=== PATIENT | female | born 1945 | race Caucasian/White ===

== ENCOUNTER 2020-07-11 14:06 | Emergency (ER) | payer MEDICARE, OTHER, SELFPAY ==
[2020-07-11 15:13] VITALS: BP 135/49; PULSE 85; RESP 18; TEMP 37.6; O2SAT 99; BMI 43.5
--- NOTE | 2020-07-11 16:15 | ECG_ITS ---
Test Reason : WEAKNESS Blood Pressure : / mmHG Vent. Rate : 085 BPM Atrial Rate : 085 BPM P-R Int : 190 ms QRS Dur : 082 ms QT Int : 364 ms P-R-T Axes : 049 033 051 degrees QTc Int : 433 ms Normal sinus rhythm RSR' or QR pattern in V1 suggests right ventricular conduction delay Nonspecific ST abnormality Lateral leads Abnormal ECG When compared with ECG of 18-OCT-2006 17:04, Nonspecific ST abnormality is new Heart rate has increased Referred By: Filippo Lozano Electronically Signed By:EMILY AVELAR MD
--- NOTE | 2020-07-11 16:15 | XR_ITS ---
EXAMINATION: XR CHEST CLINICAL INFORMATION: Shortness of breath COMPARISON: None TECHNIQUE: Portable upright AP view of the chest was obtained. FINDINGS: There is subtle patchy opacity left retrocardiac region suspicious for airspace opacities. There are no air bronchograms. No effusion. The right lung is clear. Heart is upper limits of normal size. The hilar and mediastinal contours are normal. No visible acute bony abnormality. XR/XR chest 1V IMPRESSION: Suspect patchy airspace opacity left posterior base. No effusion.
--- NOTE | 2020-07-11 16:17 | ED.GENADULT ---
HPI - General Adult General Chief complaint: General Medical Stated complaint: fever,chills,sob Time Seen by Provider: 07/11/20 16:09 Source: patient Mode of arrival: ambulatory Limitations: no limitations History of Present Illness HPI narrative: 74-year-old female presented with fever, chills, nonproductive cough for the past 2 days, patient declined any recent travel or exposure to a sick contact. Onset (ago): day(s) (2) Severity: moderate Relieving factors: none Exacerbating factors: none Associated symptoms: cough Treatments prior to arrival: none Related Data Home Medications Medication Instructions Recorded Confirmed furosemide 1 tab PO DAILY 07/11/20 07/11/20 Previous Rx's Medication Instructions Recorded azithromycin [Zithromax Z-Ang] 250 mg PO DAILY 5 Days #5 tab 07/11/20 Allergies Allergy/AdvReac Type Severity Reaction Status Date / Time mold Allergy Cough Verified 07/11/20 14:13 Review of Systems Review of Systems: All other systems are reviewed and are negative Constitutional: Reports as per HPI and Reports no additional constitutional complaints Eyes: Reports as per HPI and Reports no additional eye complaints Reports system reviewed and no additional complaints, except as documented Cardiovascular: Reports as per HPI and Reports no additional cardiovascular complaints Respiratory: Reports as per HPI and Reports no additional respiratory complaints Gastrointestinal: Reports as per HPI and Reports no additional gastrointestinal complaints Genitourinary: Reports no additional female genitourinary complaints Musculoskeletal: Reports no additional musculoskeletal complaints Skin/Breast: Reports system reviewed and no additional complaints, except as docu Psychiatric: Reports no additional psychiatric complaints Endocrine: Reports no additional endocrine complaints Hematologic/Lymphatic: Reports no additional hematologic/lymphatic complaints Allergic/Immunologic: Reports no additional allergic/immunologic complaints Reports system reviewed and no additional complaints, except as documented and Reports Abnormal speech present [facility] Past Medical History Medical History No known health problems Surgical History History of hysterectomy Social History Social History Alcohol intake: never Smoking Status: Former smoker Use of substances other than those prescribed or required for medical reasons: No Advance Directives: No Advance Directives Information Provided: No Physical Exam Vital Signs: Vital Signs: Vital Signs Temp Pulse Resp BP Pulse Ox 07/11/20 18:14 100.0 F 84 18 141/56 H 97 07/11/20 16:43 99.6 F 85 20 110/62 94 07/11/20 15:13 99.6 F 85 18 135/49 L 99 Body Mass Index 43.5 vital signs have been reviewed as normal and appeared to be correct. Blood pressure normal. Heart rate normal. Respiration rate normal. Temperature normal. Oxygen saturation normal. Appearance: Alert. Oriented X3. No acute distress. Head: Normal external exam. Normocephalic. Atraumatic. No Torres signs noted. No raccoon eyes noted Eyes: PERRLA. EOMI. Conjunctiva and sclera normal. Eyelids normal. ENT: EAC normal. TM's Normal. Pharynx normal. Uvula midline. Moist mucous membranes. No trismus noted. No drooling noted. No muffled voice noted. Neck: Normal inspection. Neck supple. FROM. No adenopathy. Thyroid Normal. No meningeal signs. No neck mass noted. CVS: Normal heart rate and rhythm. Heart sound normal. No murmurs noted. Pulses normal throughout. Respiratory: No respiratory distress. Painless inspiration. Breath sounds normal. No wheezes/rales/rhonchi noted. Chest nontender. No accessory muscle usage noted or decreased air movement noted. Abdomen: Soft and nontender. Bowel sounds normal in all 4 quadrants. No distention noted. No organomegaly noted. No visible injury noted. Back: No CVA tenderness. Full range of motion noted. Skin: Skin warm and dry. Normal skin color. Normal skin turgor. No rashes/lesions/lacerations noted. Extremities: No lower extremity edema. Extremities exhibit normal range of motion. Extremities nontender. Neuro: Oriented X 3. No motor deficit. No sensory deficit. Reflexes normal. Course Course Course Narrative: this is a 74-year-old female presented with 2 days of on and off fever, chills, dry cough. Patient appears stable Will check chest x-ray, rule out sepsis, COVID testing, reassess. Medical Decision Making MDM Narrative Medical decision making narrative: Assessment and plan. 74-year-old female came in with fever, chills, difficulty breathing and coughing. Labs and chest x-ray with physical exam are consistent with simple noncomplicated pneumonia with out sepsis. Will discharge the patient with Z-Ang for 5 days. Lab Data Result diagrams: 07/11/20 16:38 07/11/20 16:38 Labs: Lab Results 07/11/20 07/11/20 07/11/20 Range/Units 16:38 16:38 16:38 WBC 9.6 (4.8-10.8) X10*3/uL RBC 3.91 L (4.20-5.50) X10*6/uL Hgb 12.4 (12.0-16.0) g/dl Hct 37.3 (37-47) % MCV 95.4 (80-98) fL MCH 31.7 (27.0-33.0) pg MCHC 33.2 (31.0-35.0) g/dl RDW 12.6 (11.0-16.0) % Plt Count 176 (160-400) X10*3/uL MPV 11.4 (9.4-12.3) fL Absolute Nucleated RBC 0.000 (0.0-0.012) X10*3/uL Nucleated RBC % (auto) 0.0 (0.0-0.2) /100WBC Sodium 137 (135-145) mmol/L Potassium 4.3 (3.3-5.1) mmol/l Chloride 99 (96-108) mmol/L Carbon Dioxide 28 (22-29) mmol/L Anion Gap 14 (12-20) BUN 12 (9-16) mg/dL Creatinine 0.77 (0.5-1.4) mg/dL Estim Creat Clear Calc 66.5 Estimated GFR > 60 Random Glucose 151 H (60-115) mg/dL Lactic Acid 1.1 (0.5-2.0) mmol/L Calcium 8.6 (8.4-10.2) mg/dL Magnesium 2.2 (1.6-2.6) mg/dL Total Bilirubin 0.4 (0.0-1.0) mg/dL Direct Bilirubin 0.2 (0.0-0.5) mg/dL AST 41 H (5-31) U/L ALT 47 H (0-31) U/L Alkaline Phosphatase 88 (39-117) U/L B-Natriuretic Peptide (<100) pg/mL Total Protein 6.4 L (6.5-8.0) g/dL Albumin 3.8 (3.5-5.0) g/dL Lipase 41 (8-78) U/L Coronavirus (PCR) (Negative) 07/11/20 07/11/20 07/11/20 Range/Units 16:38 16:38 16:38 WBC (4.8-10.8) X10*3/uL RBC (4.20-5.50) X10*6/uL Hgb (12.0-16.0) g/dl Hct (37-47) % MCV (80-98) fL MCH (27.0-33.0) pg MCHC (31.0-35.0) g/dl RDW (11.0-16.0) % Plt Count (160-400) X10*3/uL MPV (9.4-12.3) fL Absolute Nucleated RBC (0.0-0.012) X10*3/uL Nucleated RBC % (auto) (0.0-0.2) /100WBC Sodium (135-145) mmol/L Potassium (3.3-5.1) mmol/l Chloride (96-108) mmol/L Carbon Dioxide (22-29) mmol/L Anion Gap (12-20) BUN (9-16) mg/dL Creatinine (0.5-1.4) mg/dL Estim Creat Clear Calc Estimated GFR Random Glucose (60-115) mg/dL Lactic Acid (0.5-2.0) mmol/L Calcium (8.4-10.2) mg/dL Magnesium Cancelled (1.6-2.6) mg/dL Total Bilirubin Cancelled (0.0-1.0) mg/dL Direct Bilirubin Cancelled (0.0-0.5) mg/dL AST Cancelled (5-31) U/L ALT Cancelled (0-31) U/L Alkaline Phosphatase Cancelled (39-117) U/L B-Natriuretic Peptide 18 (<100) pg/mL Total Protein Cancelled (6.5-8.0) g/dL Albumin Cancelled (3.5-5.0) g/dL Lipase Cancelled (8-78) U/L Coronavirus (PCR) (Negative) 07/11/20 Range/Units 16:38 WBC (4.8-10.8) X10*3/uL RBC (4.20-5.50) X10*6/uL Hgb (12.0-16.0) g/dl Hct (37-47) % MCV (80-98) fL MCH (27.0-33.0) pg MCHC (31.0-35.0) g/dl RDW (11.0-16.0) % Plt Count (160-400) X10*3/uL MPV (9.4-12.3) fL Absolute Nucleated RBC (0.0-0.012) X10*3/uL Nucleated RBC % (auto) (0.0-0.2) /100WBC Sodium (135-145) mmol/L Potassium (3.3-5.1) mmol/l Chloride (96-108) mmol/L Carbon Dioxide (22-29) mmol/L Anion Gap (12-20) BUN (9-16) mg/dL Creatinine (0.5-1.4) mg/dL Estim Creat Clear Calc Estimated GFR Random Glucose (60-115) mg/dL Lactic Acid (0.5-2.0) mmol/L Calcium (8.4-10.2) mg/dL Magnesium (1.6-2.6) mg/dL Total Bilirubin (0.0-1.0) mg/dL Direct Bilirubin (0.0-0.5) mg/dL AST (5-31) U/L ALT (0-31) U/L Alkaline Phosphatase (39-117) U/L B-Natriuretic Peptide (<100) pg/mL Total Protein (6.5-8.0) g/dL Albumin (3.5-5.0) g/dL Lipase (8-78) U/L Coronavirus (PCR) NEGATIVE (Negative) Imaging Data Chest x-ray: Radiologist's impression: Suspect patchy airspace opacity left posterior base. No effusion. ECG Data Interpretation: Normal sinus rhythm at 85 beats per minute normal intervals, no ST- T changes. Discharge Plan Discharge Clinical Impression: Community acquired pneumonia Qualifiers: Laterality: left Lung location: lower lobe of lung Qualified Code(s): J18.9 - Pneumonia, unspecified organism Patient Disposition: Home, Self-Care Instructions: Community Acquired Pneumonia (ED) Prescriptions: New azithromycin [Zithromax Z-Ang] 250 mg tablet 250 mg PO DAILY 5 Days Qty: 5 RF: 0 No Action furosemide 20 mg tablet 1 tab PO DAILY RF: 0
[2020-07-11 16:43] VITALS: BP 110/62; PULSE 85; RESP 20; TEMP 37.6; O2SAT 94
[2020-07-11] MEDS: 0.9 % Sodium Chloride 1,000 ML 999 ML IVCONT (16:49)
[2020-07-11 16:51] LABS: Hematocrit 37.3 % (37-47); Hemoglobin 12.4 g/dl (12.0-16.0); Mean Corpuscular HGB Conc 33.2 g/dl (31.0-35.0); Mean Corpuscular Hemoglobin 31.7 pg (27.0-33.0); Mean Corpuscular Volume 95.4 fL (80-98); Mean Platelet Volume 11.4 fL (9.4-12.3); Platelet Count 176 X10*3/uL (160-400); Red Blood Count 3.91 X10*6/uL (4.20-5.50); Red Cell Distribution Width 12.6 % (11.0-16.0); White Blood Count 9.6 X10*3/uL (4.8-10.8)
[2020-07-11 17:15] LABS: Lactic Acid 1.1 mmol/L (0.5-2.0)
[2020-07-11 17:22] LABS: Alanine Aminotransferase 47 U/L (0-31); Albumin Level 3.8 g/dL (3.5-5.0); Alkaline Phosphatase 88 U/L (39-117); Anion Gap 14 (12-20); Aspartate Amino Transferase 41 U/L (5-31); Bilirubin Direct 0.2 mg/dL (0.0-0.5); Bilirubin Total 0.4 mg/dL (0.0-1.0); Blood Urea Nitrogen 12 mg/dL (9-16); Calcium 8.6 mg/dL (8.4-10.2); Carbon Dioxide 28 mmol/L (22-29); Chloride 99 mmol/L (96-108); Creatinine Clr Calc Pharmacy 66.5; Estimated Glomerular Filt Rate > 60; Glucose Random 151 mg/dL (60-115); Lipase 41 U/L (8-78); Magnesium 2.2 mg/dL (1.6-2.6); Potassium 4.3 mmol/l (3.3-5.1); Sodium 137 mmol/L (135-145); Total Protein 6.4 g/dL (6.5-8.0)
[2020-07-11 17:26] LABS: B Type Natriuretic Peptide 18 pg/mL (<100)
[2020-07-11] MEDS: cefTRIAXone sodium 1 GM in 0.9 % Sodium Chloride 50 ML IV (17:48)
[2020-07-11] MEDS: Azithromycin 500 MG TABLET PO (17:48)
[2020-07-11 18:07] LABS: SARS COV2 PCR INHOUSE NEGATIVE (Negative)
[2020-07-11 18:14] VITALS: BP 141/56; PULSE 84; RESP 18; TEMP 37.8; O2SAT 97
[2020-07-11] MEDS: Acetaminophen 325 MG TABLET 650 MG PO (19:03)
== END 2020-07-11 19:46 | disposition home or self-care (01) ==
PROVIDERS: Emergency Provider Emergency Medicine
DX: J18.9 Pneumonia, unspecified organism (principal); R50.9 Fever, unspecified; R05 Cough; Z79.899 Other long term (current) drug therapy; Z87.891 Personal history of nicotine dependence; Z20.828 Contact with and (suspected) exposure to other viral communicable diseases
CPT/HCPCS: 36415; 71045; 80048; 80076; 83605; 83690; 83735; 83880; 85027; 87040; 87635; 93005; 99284

== ENCOUNTER 2020-09-03 09:57 | Outpatient (REF) | payer MEDICARE, MEDICAID, SELFPAY ==
[2020-09-03 10:31] LABS: MANUAL DIFF FLAG NO
[2020-09-03 10:38] LABS: Basophils Percent Auto 0.5 % (0-2); Eosinophils Absolute Auto 0.2 X10*3/uL (0.0-0.4); Eosinophils Percent Auto 2.7 % (0-4); Hematocrit 43.6 % (37-47); Hemoglobin 14.4 g/dl (12.0-16.0); Imm Gran Abs Auto 0.03 X10*3/uL (0.00-0.03); Imm Gran Pct Auto 0.5 % (0.0-0.4); Lymphocytes Absolute Auto 1.7 X10*3/uL (1.2-4.9); Lymphocytes Percent Auto 26.4 % (20-40); Mean Corpuscular Hemoglobin 31.2 pg (27.0-33.0); Mean Corpuscular Volume 94.6 fL (80-98); Mean Platelet Volume 11.2 fL (9.4-12.3); Monocytes Absolute Auto 0.5 X10*3/uL (0.1-1.2); Monocytes Percent Auto 7.8 % (2-11); Neutrophils Percent Auto 62.1 % (45-73); Platelet Count 190 X10*3/uL (160-400); Red Blood Count 4.61 X10*6/uL (4.20-5.50); Red Cell Distribution Width 12.9 % (11.0-16.0); White Blood Count 6.4 X10*3/uL (4.8-10.8)
[2020-09-03 11:21] LABS: Alanine Aminotransferase 11 U/L (0-31); Albumin Level 4.2 g/dL (3.5-5.0); Alkaline Phosphatase 80 U/L (39-117); Anion Gap 12 (12-20); Aspartate Amino Transferase 13 U/L (5-31); Bilirubin Direct 0.2 mg/dL (0.0-0.5); Bilirubin Total 0.4 mg/dL (0.0-1.0); Blood Urea Nitrogen 15 mg/dL (9-16); Carbon Dioxide 31 mmol/L (22-29); Chloride 102 mmol/L (96-108); Cholesterol 231 mg/dL; Estimated Glomerular Filt Rate > 60; Glucose Fasting 99 mg/dL (60-99); HDL Cholesterol 56 mg/dL; LDL Cholesterol Calculated 154 mg/dl; Potassium 4.3 mmol/l (3.3-5.1); Sodium 141 mmol/L (135-145); Total Protein 6.7 g/dL (6.5-8.0); Triglycerides 105 mg/dL
[2020-09-03 11:42] LABS: Vitamin D 25-OH Total 32.7 ng/mL (>30)
== END 2020-09-03 09:58 | disposition home or self-care (01) ==
LOC: HO.LAB 09:57
DX: Z00.00 Encounter for general adult medical examination without abnormal findings (principal); R51.9 Headache, unspecified; R42 Dizziness and giddiness
CPT/HCPCS: 36415; 80053; 80061; 80076; 82248; 82306; 85025

== ENCOUNTER 2021-05-29 13:44 | Outpatient (REF) | payer MEDICARE, MEDICAID, SELFPAY ==
--- NOTE | ~2021-05-29 | MM_ITS ---
EXAMINATION: MM SCREENING DIGITAL BREAST TOMOSYNTHESIS, BILATERAL CLINICAL INFORMATION: Screening. Asymptomatic. The lifetime risk of breast cancer based on the Tyrer-Cuzick Model is under 2%. COMPARISON: Mammography: 05/23/2020, 05/18/2019, 05/02/2018, 03/19/2017, 08/18/2011 TECHNIQUE: Digital breast tomosynthesis is performed in both the craniocaudal and mediolateral oblique views along with computer-aided detection (CAD). Synthesized 2D images are generated from the tomosynthesis. Additional right MLO view is provided. FINDINGS: There are scattered areas of fibroglandular density (ACR BI-RADS breast composition Category b). Parenchymal pattern is similar to prior studies. Chronic fine fibronodular densities are present. There is decreased cystic changes central outer left breast and decreased fine nodularity central right breast since 2010. There is no interval significant mass or architectural abnormality. No abnormal calcifications. The axilla and skin contours are unremarkable. MM/MM tomosynthesis screening BI IMPRESSION: No significant changes from prior studies. ASSESSMENT: BI-RADS 2: Benign RECOMMENDATION: Routine annual mammography screening. This patient's information was entered into a reminder system with a target due date for their next mammogram.
== END 2021-05-29 13:45 | disposition home or self-care (01) ==
LOC: HO.MAMMO 13:44
PROVIDERS: PCP Internal Medicine; Visit Provider Internal Medicine
DX: Z12.31 Encounter for screening mammogram for malignant neoplasm of breast (principal)
CPT/HCPCS: 77063; 77067

== ENCOUNTER 2022-06-04 14:14 | Outpatient (REF) | payer MEDICARE, MEDICAID, SELFPAY ==
--- NOTE | ~2022-06-04 | MM_ITS ---
EXAMINATION: MM SCREENING DIGITAL BREAST TOMOSYNTHESIS, BILATERAL CLINICAL INFORMATION: Screening. Asymptomatic. The lifetime risk of breast cancer based on the Tyrer-Cuzick Model is under 2%. COMPARISON: Mammography: 05/29/2021, 05/23/2020, 05/18/2019, 05/02/2018; left breast ultrasound 11/23/2019, 05/24/2019. TECHNIQUE: Digital breast tomosynthesis is performed in both the craniocaudal and mediolateral oblique views along with computer-aided detection (CAD). Synthesized 2D images are generated from the tomosynthesis. Additional bilateral MLO views are provided. FINDINGS: There are scattered areas of fibroglandular density (ACR BI-RADS breast composition Category b). Parenchymal pattern is similar to prior studies. There is scattered minor nodularity and known cysts anterior outer left breast. No architectural abnormality or significant mass or developing density. No abnormal calcifications. The axilla and skin contours are unremarkable. MM/MM tomosynthesis screening BI IMPRESSION: No significant changes from prior exams. ASSESSMENT: BI-RADS 2: Benign RECOMMENDATION: Routine annual mammography screening. This patient's information was entered into a reminder system with a target due date for their next mammogram.
== END 2022-06-04 14:15 | disposition home or self-care (01) ==
LOC: HO.MAMMO 14:14
PROVIDERS: PCP Internal Medicine; Visit Provider Internal Medicine
DX: Z12.31 Encounter for screening mammogram for malignant neoplasm of breast (principal)
CPT/HCPCS: 77063; 77067

== ENCOUNTER 2023-06-10 14:28 | Outpatient (REF) | payer MEDICARE, SELFPAY | END 2023-06-10 14:29 | disposition home or self-care (01) | LOC: HO.MAMMO 14:28 | PROVIDERS: PCP Internal Medicine; Visit Provider Internal Medicine | DX: Z12.31 Encounter for screening mammogram for malignant neoplasm of breast (principal) | CPT/HCPCS: 77063; 77067 ==

== ENCOUNTER → 2023-06-10 14:30 | Outpatient (BNV) | payer MEDICARE, SELFPAY | PROVIDERS: PCP Internal Medicine; Visit Provider Radiology Diagnostic Radiology | DX: Z12.31 Encounter for screening mammogram for malignant neoplasm of breast (principal) | CPT/HCPCS: 77063; 77067 ==

== ENCOUNTER 2024-06-12 14:31 | Outpatient (REF) | payer MEDICARE, SELFPAY ==
--- NOTE | ~2024-06-12 | MM_ITS ---
EXAMINATION: MM SCREENING DIGITAL BREAST TOMOSYNTHESIS, BILATERAL CLINICAL INFORMATION: Screening. Asymptomatic. COMPARISON: Mammography: Comparison is made with available priors TECHNIQUE: Digital breast mammography with tomosynthesis is performed in both the craniocaudal and mediolateral oblique views along with computer-aided detection (CAD). FINDINGS: There are scattered areas of fibroglandular density (ACR BI-RADS breast composition Category b). Left: Focal asymmetry upper outer breast middle depth. No suspicious calcifications or other abnormal findings. Right: Asymmetry medial breast middle depth on CC view. There are no significant abnormal calcifications, or other abnormalities. MM/MM tomosynthesis screening BI IMPRESSION: Additional imaging is recommended ASSESSMENT: BI-RADS BI-RADS 0 - Incomplete: Needs additional Imaging. RECOMMENDATION: 1. Additional views of the bilateral breasts 2. Targeted ultrasound if warranted after review of the additional views. 3. Radiology department staff will contact the patient for additional imaging. Additional Imaging required This examination should not preclude the clinical evaluation of a suspicious palpable abnormality. This patient's information was entered into a reminder system with a target due date for their next mammogram. Electronically signed by: Symone Cain DO 06/23/2024 09:21 AM EDT
== END 2024-06-12 14:32 | disposition home or self-care (01) ==
LOC: HO.MAMMO 14:31
PROVIDERS: PCP Internal Medicine; Visit Provider Internal Medicine
DX: Z12.31 Encounter for screening mammogram for malignant neoplasm of breast (principal)
CPT/HCPCS: 77063; 77067

== ENCOUNTER → 2024-06-12 14:45 | Outpatient (BNV) | payer MEDICARE, SELFPAY | PROVIDERS: PCP Internal Medicine; Visit Provider Internal Medicine | DX: Z12.31 Encounter for screening mammogram for malignant neoplasm of breast (principal) | CPT/HCPCS: 77063; 77067 ==

== ENCOUNTER 2024-08-15 14:24 | Outpatient (REF) | payer MEDICARE, SELFPAY ==
--- NOTE | ~2024-08-15 | US_ITS ---
EXAMINATION: MM DIAGNOSTIC DIGITAL BREAST TOMOSYNTHESIS, BILATERAL US BREAST LIMITED, BILATERAL MAMMOGRAPHY: CLINICAL INFORMATION: Diagnostic exam; evaluate focal asymmetry left breast upper outer quadrant. Evaluate one view asymmetry slightly medial right breast CC view only, middle depth. COMPARISON: Mammography: 06/12/2024, and older exams dating back to 2017. TECHNIQUE: Digital breast tomosynthesis is performed in the following views: Full field 3-D right ML view, as well as a spot compression 3-D right CC view. In addition, 3-D spot compression left CC x2 and left ML x1 also obtained. Computer-aided diagnosis was used for this study. This was followed by targeted bilateral breast ultrasound. FINDINGS: There are scattered areas of fibroglandular density (ACR BI-RADS breast composition Category b). Focal asymmetry in the upper outer left breast was worked up previously 05/18/2019, and was found to represent several simple and minimally complicated cysts (fibrocystic changes). On today's examination this area appears similar mammographically. There are several oval circumscribed subcentimeter masses suggestive of known cysts. We will evaluate this area with ultrasound. Within the left breast, seen medially, a 1 view asymmetry is present, and persistent, however stable from exams dating back to 2017, consistent with a benign entity. This will be evaluated with ultrasound as well. ULTRASOUND: CLINICAL INFORMATION: As above. COMPARISON: Left breast targeted ultrasound 11/23/2019, 05/24/2019. TECHNIQUE: Targeted sonographic evaluation bilateral breasts was performed using a high frequency linear transducer. Left breast was scanned in the upper outer quadrant to evaluate the mammographic focus of concern. Right breast was evaluated from the 2:00 to 5:00 axis to include the area of mammographic concern. Selected archived documentation. FINDINGS: RIGHT BREAST: There is a mixture of fatty and fibroglandular tissue. No suspicious mass is seen. There is no pathologic acoustic shadowing. There is no cystic abnormality. There are 2 small subcentimeter lipomatous nodules, likely correlating with the medial asymmetry on the CC view, benign. LEFT BREAST: There is a mixture of fatty and fibroglandular tissue. No suspicious mass is seen. There is no pathologic acoustic shadowing. There are several grouped simple and minimally complicated cysts. None have suspicious features, and the largest measures approximately 5 mm in diameter, unchanged from 2019. Findings are consistent with benign fibrocystic changes. US/US breast BI limited mamm only IMPRESSION: 1. There are no findings suspicious for malignancy in either breast. 2. Benign fibrocystic changes in the upper outer left breast, stable from 2019 exams. 3. Benign right breast medial asymmetry, unchanged from 2017, likely correlating with a 5 mm lipomatous nodule. This is a benign entity. 4. Recommend the patient return to routine annual screening mammography in one year. OVERALL ASSESSMENT: Mammography: BI-RADS 2 - Benign Findings Ultrasound: BI-RADS 2 - Benign Findings RECOMMENDATION: 1 year F/U This patient's information was entered into a reminder system with a target due date for their next mammogram. Electronically signed by: Elkin Kearns MD 08/15/2024 04:35 PM JACKELYN BELTRAN
== END 2024-08-15 14:25 | disposition home or self-care (01) ==
LOC: HO.MAMMO 14:24
PROVIDERS: PCP Internal Medicine; Visit Provider Internal Medicine
DX: N64.89 Other specified disorders of breast (principal)
CPT/HCPCS: 76642; 77062; 77066

== ENCOUNTER → 2024-08-15 14:30 | Outpatient (BNV) | payer MEDICARE, SELFPAY | PROVIDERS: PCP Internal Medicine; Visit Provider Radiology Diagnostic Radiology | DX: N60.12 Diffuse cystic mastopathy of left breast (principal); R92.8 Other abnormal and inconclusive findings on diagnostic imaging of breast | CPT/HCPCS: 76642; 77066; G0279 ==

== ENCOUNTER 2025-01-26 13:16 | Emergency (ER) | payer OTHER, SELFPAY ==
[2025-01-26] VITALS (7 sets, daily range): BP systolic 114–170; BP diastolic 42–93; PULSE 56–74; RESP 14–18; TEMP 36.6–36.8; O2SAT 95–98; BMI 44.0
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
--- NOTE | 2025-01-26 14:00 | ECG_ITS ---
Test Reason : cp Blood Pressure : */* mmHG Vent. Rate : 65 BPM Atrial Rate : 65 BPM P-R Int : 210 ms QRS Dur : 86 ms QT Int : 434 ms P-R-T Axes : 56 28 59 degrees QTcB Int : 451 ms Sinus rhythm with 1st degree A-V block with Premature atrial complexes Otherwise normal ECG When compared with ECG of 11-Jul-2020 16:40, Premature atrial complexes are now Present Referred By: John Alicia Electronically Signed By: FAHEEM GREGORY
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
--- NOTE | 2025-01-26 14:24 | MHC.EDTECH ---
EKG delayed d/t pt getting images done
[2025-01-26 14:50] LABS: Basophils Percent Auto 0.2 % (0-2); Eosinophils Percent Auto 0.1 % (0-4); Hematocrit 40.4 % (37.0-47.0); Hemoglobin 13.4 g/dl (12.0-16.0); Imm Gran Abs Auto 0.11 X10*3/uL (0.00-0.03); Imm Gran Pct Auto 0.7 % (0.0-0.4); Lymphocytes Absolute Auto 1.5 X10*3/uL (1.2-4.9); Lymphocytes Percent Auto 9.2 % (20-40); MANUAL DIFF FLAG NO; Mean Corpuscular HGB Conc 33.2 g/dl (31.0-35.0); Mean Corpuscular Hemoglobin 31.1 pg (27.0-33.0); Mean Corpuscular Volume 93.7 fL (80.0-98.0); Mean Platelet Volume 11.1 fL (9.4-12.3); Monocytes Absolute Auto 1.1 X10*3/uL (0.1-1.2); Monocytes Percent Auto 6.5 % (2-11); Neutrophils Absolute Auto 13.4 x10*3/uL (2.0-8.3); Neutrophils Percent Auto 83.3 % (45-73); Platelet Count 221 X10*3/uL (160-400); Red Blood Count 4.31 X10*6/uL (4.20-5.50); Red Cell Distribution Width 13.9 % (11.0-16.0); White Blood Count 16.1 X10*3/uL (4.8-10.8)
[2025-01-26 15:04] LABS: Alanine Aminotransferase 22 U/L (0-31); Albumin Level 4.2 g/dL (3.5-5.0); Alkaline Phosphatase 51 U/L (39-117); Anion Gap 10 (12-20); Aspartate Amino Transferase 23 U/L (5-31); Bilirubin Total 0.3 mg/dL (0.0-1.0); Blood Urea Nitrogen 24 mg/dL (9-16); Calcium 9.5 mg/dL (8.4-10.2); Carbon Dioxide 27 mmol/L (22-29); Chloride 105 mmol/L (96-108); Creatinine Clr Calc Pharmacy 60.1; Estimated Glomerular Filt Rate > 60; Glucose Random 124 mg/dL (60-115); Potassium 3.9 mmol/L (3.3-5.1); Sodium 138 mmol/L (135-145); Total Protein 6.9 g/dL (6.5-8.0)
[2025-01-26 15:10] LABS: B Type Natriuretic Peptide 98 pg/mL (<100)
[2025-01-26 15:15] LABS: Troponin-I High Sensitivity < 2.7 ng/L (<3.5-17.0)
--- NOTE | 2025-01-26 15:17 | MHC.EDTECH ---
pt assisted on bedpan for urine output. urine sample collected and sent to lab.
[2025-01-26 15:19] LABS: Appearance Urine Clear; Color Urine Yellow; Glucose Urine UA Negative (Negative); Leukocyte Esterase Urine Trace (Negative); Nitrite Urine Negative (Negative); UMIC TRIGGER UACC YES; Urine Blood Negative (Negative); Urine Ketones Trace mg/dL (Negative); Urine Protein Negative (Neg-Trace)
[2025-01-26 15:30] LABS: Bacteria Urine None Seen (None Seen); Hyaline Casts Urine 0-2 /LPF (0-2); RBC Urine 0-2 /HPF (0-2); Squamous Epithelial Cell Urine 0-2 /HPF (0-2); WBC Urine 0-5 /HPF (0-5)
--- NOTE | 2025-01-26 17:52 | PC.NURSE ---
report to Abbey PARKER @ [facility] pt to be transported via [facility]
[2025-01-26] MEDS: Ketorolac Tromethamine 30 MG/ML VIAL IVPUSH (18:22)
== END 2025-01-26 19:58 | disposition short-term general hospital (02) ==
PROVIDERS: Physician Assistant; Emergency Provider Emergency Medicine Emergency Medical Services; PCP Internal Medicine
DX: Z04.1 Encounter for examination and observation following transport accident (principal); I30.9 Acute pericarditis, unspecified; M25.511 Pain in right shoulder; M25.561 Pain in right knee
CPT/HCPCS: 36415; 70450; 71250; 72125; 73030; 73564; 74176; 80053; 81001; 83880; 84484; 85025; 93005; 96374; 99285; J1885

== ENCOUNTER → 2025-01-26 13:58 | Outpatient (BNV) | payer MEDICARE, SELFPAY | PROVIDERS: Emergency Provider Emergency Medicine Emergency Medical Services; PCP Internal Medicine; Visit Provider Radiology Diagnostic Radiology | DX: S39.93XA Unspecified injury of pelvis, initial encounter (principal); M47.892 Other spondylosis, cervical region; M54.2 Cervicalgia; S09.90XA Unspecified injury of head, initial encounter; M25.561 Pain in right knee; M25.511 Pain in right shoulder | CPT/HCPCS: 70450; 71250; 72125; 73030; 73564; 74176 ==

== ENCOUNTER → 2025-01-26 14:00 | Outpatient (BNV) | payer MEDICARE, SELFPAY | PROVIDERS: Emergency Provider Emergency Medicine Emergency Medical Services; PCP Internal Medicine; Visit Provider Internal Medicine | DX: R07.9 Chest pain, unspecified (principal) | CPT/HCPCS: 93010 ==

== ENCOUNTER 2025-02-07 12:37 | Outpatient (AMB) | payer OTHER, MEDICARE, SELFPAY ==
[2025-02-07 13:00] VITALS: BP 124/62; PULSE 64; BMI 40.9
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
--- OUTSIDE RECORDS SUMMARY | 2025-02-07 13:22 | XMS_ITS ---
Author Name [facility] Organization Unknown Encounters Encounter Type Encounter Reason Primary Diagnosis Location Date Ambulatory [facility] [place] 02/07/2025
== END 2025-02-07 13:20 | disposition home or self-care (01) ==
PROVIDERS: PCP Internal Medicine; Visit Provider Internal Medicine
DX: I31.39 Other pericardial effusion (noninflammatory) (principal)
CPT/HCPCS: 93010; 99213

== ENCOUNTER → 2025-02-07 12:37 | Outpatient (BNVA) | payer OTHER, SELFPAY | PROVIDERS: PCP Internal Medicine; Visit Provider Internal Medicine | DX: I31.39 Other pericardial effusion (noninflammatory) (principal) | CPT/HCPCS: 93005 ==

== ENCOUNTER → 2025-03-07 13:50 | Outpatient (REF) | payer MEDICARE, SELFPAY ==
--- NOTE | 2025-03-07 13:54 | CA_ITS ---
Transthoracic Echocardiogram Patient (Last, First, Middle): Nancy York A Gender: Female Date of : 1945 Age: 79 Procedure Date: 03/07/2025 Procedure Type: Transthoracic Echocardiogram Location: OP Height: 152.4 cm Weight: 93.44 kg BSA: 1.89 m2 Heart Rate: bpm BP: 124 / 62 mmHg [employer] Checkout Technician: CP/DANNY Referring MD: Jack Santos MD Sourcing Internship: Oneil Gillis MD Symptoms: I31.39 - Other pericardial effusion (noninflammatory) Study Quality: Fair ECG Rhythm: Sinus Conclusions: - 1. Small circumferential pericardial effusion noted 2. Normal LV ejection fraction of 60 65% with impaired relaxation filling pattern and elevated filling pressures 3. Mildly dilated left atrium 4. Cardiac valvular Dopplers within normal limits 5. Normal RV systolic pressure Findings Left Ventricle Normal left ventricular size, thickness, and systolic function. The visually estimated ejection fraction is between 60-65%. Spectral Doppler is indicative of an impaired relaxation filling pattern. Elevated filling pressures. E/E prime ratio is >15, consistent with elevated filling pressures. Right Ventricle Normal right ventricular cavity size and systolic function. Atria The left atrium is mildly dilated. Interatrial shunt cannot be excluded. The right atrium is normal in size. Aortic Valve The aortic valve was not well visualized. There is no aortic valve stenosis. There is no aortic valve regurgitation. Mitral Valve There is mild anterior and posterior mitral leaflet thickening. There is trace mitral valve regurgitation. There is no mitral valve stenosis. Pulmonic Valve The pulmonic valve was not well visualized. Tricuspid Valve Likely normal tricuspid valve structure and function. There is mild tricuspid valve regurgitation. The right ventricular systolic pressure is normal. The right ventricular systolic pressure is 25 mmHg. Normal right atrial pressure. There is no evidence of pulmonary hypertension. Great Vessels The pulmonary artery was not well visualized. Small plaque is seen in the sino tubular ridge. Venous The inferior vena cava is normal in size and collapses greater than 50% with inspiration. Pericardium/Pleural There is a small circumferential pericardial effusion. There are no definitive echocardiographic findings of tamponade physiology. Prior Study Comparison No previous study in the last 5 years for comparison Measurements 2D Linear Measurements IVSd: 0.93 0.6-0.9/0.6-1.0 cm LVIDd: 4.11 3.9-5.3/4.2-5.9 cm LVIDd Index: 2.17 2.4-3.2/2.2-3.1 cm/m2 LVIDs: 2.58 2.0-3.6 cm LVPWd: 0.91 0.7-1.1 cm Ao Root: 3.00 2.1-3.5 cm LA Diam: 4.80 2.7-3.8/3.0-4.0 cm LAIDs Index: 2.54 1.5-2.3 cm/m2 LV Mass: 146.54 67-162/88-224 g LV Mass Index: 77.53 43-95/49-115 g/m2 LVOT Diam: 2.00 3.0+(-)1.3 cm Mitral Valve MV Pk E: 0.97 MV PK A: 1.10 MV Decel Time: 218.00 E/A: 0.90 E'Lateral: 7.29 E'Medial: 4.46 E/E' Med: 21.60 E/E' Lat: 13.20 PHT: 64.00 MVA PHT: 3.44 Decel Lyman: 4.43 Aortic Valve AoV Pk Alfredo: 1.55 AoV Mn Alfredo: 0.97 AoV VTI: 0.34 AoV Pk Grad: 10.00 Aov Mn Grad: 4.00 APRIL Cont.VTI: 2.54 LVOT LVOT Pk Alfredo: 1.19 LVOT Mn Alfredo: 0.76 LVOT VTI: 0.27 LVOT Pk Grad: 6.00 LVOT Mn Grad: 3.00 LVOT Diam: 2.00 LVOT Area: 3.14 Diastolic Function MV Pk E: 0.97 MV Pk A: 1.10 E/A: 0.90 E'Medial: 4.46 E/E' Med: 21.60 E' Laterial: 7.29 E/E' Lat: 13.20 Right Ventricle TAPSE (mm): 2.90 TVS' Alfredo: 11.20 Tricuspid Valve TR Pk Alfredo: 2.37 TR Pk Grad: 22.00 RA Press: 3.00 RVSP: 25.00 Great Vessels Aorta Ao Root-2D: 3.00 2.0-3.7 cm Ao Asc: 3.60 2.1-3.4 cm Updated in Other Vendor System with Status of Final Oneil Gillis MD electronically signed on 03/08/2025 12:24:38 PM with status of Final
--- OUTSIDE RECORDS SUMMARY | 2025-03-07 15:53 | XMS_ITS | Clinical Summary ---
Author Organization 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 Name Role Phone Physician, No Pcp Primary Care Provider Unavaila ble Allergies No known active allergies Medications No known medications Active Problems No known active problems Encounters Date Type Department Care Team Description 02/08/2025 9:53 AM EDT - 02/08/2025 1:42 PM EDT Emergency [facility] Emergency [address] [place] [address] Dequan Pérez DO Chest pain, unspecified type (Primary Dx) Discharge Disposition: Home or Self Care from Last 3 Months Medical History Medical History Date Comments Arthritis Social History Tobacco Use Types Packs/Day Years Used Date Smoking Tobacco: Never Assessed Comments Unknown Sex and Gender Information Value Date Recorded Sex Assigned at Not on file Legal Sex Female 1:21 PM EST Gender Identity Not on file Sexual Orientation Not on file Obstetrics History Last Filed Vital Signs Vital Sign Reading Time Taken Comments Blood Pressure 147/75 02/08/2025 11:20 AM EDT Pulse 53 02/08/2025 11:30 AM EDT Temperature 36.1 C (97 F) 02/08/2025 11:20 AM EDT Respiratory Rate 16 02/08/2025 11:30 AM EDT Oxygen Saturation 99% 02/08/2025 11:30 AM EDT Inhaled Oxygen Concentration - - Weight - - Height - - Body Mass Index - - Plan of Treatment Health Maintenance Due Date Last Done Comments Zoster Vaccines (1 of 2) 12/24/1993 RSV Immunization Adult Patients (1 - 1-dose 75+ series) 12/24/2018 Pneumococcal Vaccine: 50+ Years (2 of 2 - PCV) 10/29/2021 10/29/2020 COVID-19 Vaccine ( season) 2024 06/07/2024, 07/17/2023, 08/31/2022, Additional history exists Cholesterol Screening (Lipid Panel) 02/08/2025 Depression Screening 02/08/2025 Falls Risk Assessment 02/08/2025 Medicare Annual Wellness Visit 02/08/2025 Osteoporosis Screening (Bone Density Screening) 02/08/2025 Social Influencers of Health Screening 02/08/2025 DTaP,Tdap,and Td Vaccines (2 - Td or Tdap) 04/14/2033 04/14/2023 Influenza Vaccine Completed 06/07/2024, , 08/26/2022, Additional history exists HIB Vaccines Aged Out No longer eligi ble based on patient's age to complete this topic HPV Vaccines Aged Out No longer eligi ble based on patient's age to complete this topic Hepatitis A Vaccines Aged Out No long er eligible based on patient's age to complete this topic Hepatitis B Vaccines Aged Out No long er eligible based on patient's age to complete this topic IPV Vaccines Aged Out No longer eligi ble based on patient's age to complete this topic MMR Vaccines Aged Out No longer eligi ble based on patient's age to complete this topic Meningococcal ACWY Vaccine Aged Out N o longer eligible based on patient's age to complete this topic Meningococcal B Vaccine Aged Out No l onger eligible based on patient's age to complete this topic RSV Immunization Patients Under 20 months Aged Out No longer eligible based on patient's age to complete this topic Varicella Vaccines Aged Out No longer eligible based on patient's age to complete this topic Procedures Procedure Name Priority Date/Time Associated Diagnosis Comments CT ANGIO CHEST WO AND/OR W CONTRAST STAT 02/08/2025 12:34 PM EDT Chest pain, unspecified type VAS US DUPLEX LOWER EXT VENOUS RIGHT STAT 02/08/2025 12:20 PM EDT Chest pain, unspecified type TROPONIN I HIGH SENSITIVITY STAT 02/08/2025 11:47 AM EDT ECG 12-LEAD STAT 02/08/2025 11:14 AM EDT XR CHEST 2 VIEWS STAT 02/08/2025 10:4 4 AM EDT CBC WITH AUTO DIFFERENTIAL STAT 02/08/2025 10:25 AM EDT B-TYPE NATRIURETIC PEPTIDE STAT 02/08/2025 10:25 AM EDT MAGNESIUM STAT 02/08/2025 10:25 AM EDT LIPASE STAT 02/08/2025 10:25 AM EDT COMPREHENSIVE METABOLIC PANEL STAT 02/08/2025 10:25 AM EDT CBC AND DIFFERENTIAL STAT 02/08/2025 10:25 AM EDT TROPONIN I HIGH SENSITIVITY STAT 02/08/2025 10:25 AM EDT ECG 12-LEAD STAT 02/08/2025 10:12 AM EDT from Last 3 Months Results * CT Angio Chest wo and/or w Contrast (02/08/2025 12:34 PM EDT) Anatomical Region Laterality Modality Body Computed Tomogra phy 02/08/2025 12:4 3 PM EDT Impressions 02/08/2025 12:50 PM EDT No acute cardiopulmonary disease.. -------- FINAL REPORT -------- Dictated By: Rudy Mcknight Dictated Date: 02/08/2025 12:43 ET Assigned Physician: Rudy Mcknight Reviewed and Electronically Signed By: Rudy Mcknight Signed Date: 02/08/2025 12:50 ET Workstation ID: [id number] Transcribed By: Self Edit Transcribed Date: 02/08/2025 12:43 ET Narrative 02/08/2025 12:50 PM EDT PROCEDURE: CT ANGIO CHEST INDICATION: PE suspected, high prob COMPARISON: None. TECHNIQUE: CT pulmonary angiogram performed following uneventful IV administration of ISOVUE contrast material with bolus timing technique from the thoracic inlet through the lung bases. 3-D multiplanar reformations were obtained by the technologist on an independent workstation. GE Lightspeed VCT dose reduction utilizing iterative reconstruction. Total exam DLP 591 (mGy-cm) FINDINGS: There is no CT evidence of acute pulmonary embolism to the lobar level. Evaluation of the segmental and subsegmental pulmonary arteries is limited due to motion artifact and small peripheral pulmonary emboli cannot be excluded. Mild cardiomegaly. Normal caliber aorta. Trace coronary artery calcifications and atherosclerotic plaque within the aorta. Trace fluid within the pericardial recesses. There is no evidence for mediastinal or hilar lymphadenopathy. No parenchymal abnormalities. There are no pleural effusions. The visualized portion of the upper abdomen demonstrates no acute findings however technique was not optimized for evaluation for more subtle lesions. Liver cyst. The included skeletal structures are within normal limits for technique. Procedure Note Rudy Mcknight MD - 02/08/2025 PROCEDURE: CT ANGIO CHEST INDICATION: PE suspected, high prob COMPARISON: None. TECHNIQUE: CT pulmonary angiogram performed following uneventful IVadministration of ISOVUE contrast material with bolus timing techniquefrom the thoracic inlet through the lung bases. 3-D multiplanar reformations were obtained by the technologist on anindependent workstation. GE Lightspeed VCT dose reduction utilizing iterative reconstruction. Total exam DLP 591 (mGy-cm) FINDINGS: There is no CT evidence of acute pulmonary embolism to the lobar level.Evaluation of the segmental and subsegmental pulmonary arteries is limiteddue to motion artifact and small peripheral pulmonary emboli cannot beexcluded. Mild cardiomegaly. Normal caliber aorta. Trace coronary arterycalcifications and atherosclerotic plaque within the aorta. Trace fluidwithin the pericardial recesses. There is no evidence for mediastinal or hilar lymphadenopathy. No parenchymal abnormalities. There are no pleural effusions. The visualized portion of the upper abdomen demonstrates no acute findingshowever technique was not optimized for evaluation for more subtlelesions. Liver cyst. The included skeletal structures are within normal limits for technique. IMPRESSION: No acute cardiopulmonary disease.. -------- FINAL REPORT -------- Dictated By: Rudy Mcknight Dictated Date: 02/08/2025 12:43 ET Assigned Physician: Rudy Mcknight Reviewed and Electronically Signed By: Rudy Mcknight Signed Date: 02/08/2025 12:50 ET Workstation ID: [id number] Transcribed By: Self Edit Transcribed Date: 02/08/2025 12:43 ET us Dequan Pérze DO IMG CT PROCEDURES Final Res ult * Vascular US Duplex Lower Extremity Venous Right (02/08/2025 12:20 PM EDT) Anatomical Region Laterality Modality Vascular, Abdomen Ultrasound 02/08/2025 12:2 6 PM EDT Impressions 02/08/2025 12:27 PM EDT NO RIGHT LOWER EXTREMITY DEEP VENOUS THROMBOSIS. -------- FINAL REPORT -------- Dictated By: Rudy Mcknight Dictated Date: 02/08/2025 12:26 ET Assigned Physician: Rudy Mcknight Reviewed and Electronically Signed By: Rudy Mcknight Signed Date: 02/08/2025 12:27 ET Workstation ID: [id number] Transcribed By: Self Edit Transcribed Date: 02/08/2025 12:26 ET Narrative 02/08/2025 12:27 PM EDT Ultrasound duplex right lower extremity. INDICATION: edema pain in extremities TECHNIQUE: 2-D and color Doppler imaging of the right lower extremity venous vasculature with compression and augmentation maneuvers. COMPARISON: No priors available. FINDINGS: There is normal flow, compression, and augmentation from the common femoral through the popliteal vein. There is a small amount of fluid noted in the region of bruising of the right anterior medial knee. Procedure Note Rudy Mcknight MD - 02/08/2025 Ultrasound duplex right lower extremity. INDICATION: edema pain in extremities TECHNIQUE: 2-D and color Doppler imaging of the right lower extremityvenous vasculature with compression and augmentation maneuvers. COMPARISON: No priors available. FINDINGS: There is normal flow, compression, and augmentation from the commonfemoral through the popliteal vein. There is a small amount of fluid notedin the region of bruising of the right anterior medial knee. IMPRESSION: NO RIGHT LOWER EXTREMITY DEEP VENOUS THROMBOSIS. -------- FINAL REPORT -------- Dictated By: Rudy Mcknight Dictated Date: 02/08/2025 12:26 ET Assigned Physician: Rudy Mcknight Reviewed and Electronically Signed By: Rudy Mcknight Signed Date: 02/08/2025 12:27 ET Workstation ID: [id number] Transcribed By: Self Edit Transcribed Date: 02/08/2025 12:26 ET us Dequan Pérez DO CV VASCULAR PROCEDURES Hermelinda l Result * Troponin I high sensitivity (02/08/2025 11:47 AM EDT) Only the most recent of2 resultswithin the time period is included. [facility] High Sensitivity Troponin I 5 <=54 ng/L LAB CHEMISTRY METHOD 02/08/2025 12:46 PM EDT [facility] Blood Venous blood specimen / Unknown Venipuncture / Unknown 02/08/2025 11:47 AM EDT 02/08/2025 12:13 PM EDT Narrative [facility] - 02/08/2025 12:46 PM EDT High levels of biotin in samples may falsely decrease hsTroponin values. Use caution when interpreting hsTroponin results in patients taking biotin who exhibit renal impairment (eGFR <60) or in patients taking more than 20 mg/day of biotin. us Dequan Pérez DO LAB BLOOD ORDERABLES Final Result [facility] [address] [place] [address], * ECG 12 lead (02/08/2025 11:14 AM EDT) Only the most recent of2 resultswithin the time period is included. [facility] Ventricular Rate ECG 54 BPM GEMUSE Atrial Rate 54 BPM GEMUSE P-R Interval 198 ms GEMUSE QRS Duration 80 ms GEMUSE Q-T Interval 438 ms GEMUSE QTc 415 ms GEMUSE P Wave Bard 68 degrees GEMUSE R Bard 20 degrees GEMUSE T Bard 45 degrees GEMUSE ECG Interpretation Sinus bradycardia Otherwise normal ECG When compared with ECG of 08-FEB-2025 10:12, (unconfirmed) No significant change was found Confirmed by MD Parekh Christopher ([id number]) on 02/09/2025 7:41:55 AM GEMUSE 02/08/2025 11:1 4 AM EDT 02/09/2025 7:41 AM EDT Dequan Pérez DO ECG ORDERABLES Final Resul t GEMUSE * XR Chest 2 Views (02/08/2025 10:44 AM EDT) Anatomical Region Laterality Modality Body Radiographic Yenifer ging 02/08/2025 11:0 0 AM EDT Impressions 02/08/2025 11:00 AM EDT No evidence of active pulmonary disease. -------- FINAL REPORT -------- Dictated By: Sarah Frey Dictated Date: 02/08/2025 11:00 ET Assigned Physician: Sarah Frey Reviewed and Electronically Signed By: Sarah Frey Signed Date: 02/08/2025 11:00 ET Workstation ID: [id number] Transcribed By: Self Edit Transcribed Date: 02/08/2025 11:00 ET Narrative 02/08/2025 11:00 AM EDT INDICATION: Chest pain FINDINGS: Two views of the chest were obtained. There are no prior studies available for comparison. Lung harvey are well inflated without infiltrates or effusions. Heart normal in size and shape. Tortuous, ectatic thoracic aorta. Bony structures are within normal limits for the patient's age. Procedure Note Sarah Frey MD - 02/08/2025 INDICATION: Chest pain FINDINGS: Two views of the chest were obtained. There are no prior studiesavailable for comparison. Lung harvey are well inflated without infiltrates or effusions. Heart normal in size and shape. Tortuous, ectatic thoracic aorta. Bony structures are within normal limits for the patient's age. IMPRESSION: No evidence of active pulmonary disease. -------- FINAL REPORT -------- Dictated By: Sarah Frey Dictated Date: 02/08/2025 11:00 ET Assigned Physician: Sarah Frey Reviewed and Electronically Signed By: Sarah Frey Signed Date: 02/08/2025 11:00 ET Workstation ID: [id number] Transcribed By: Self Edit Transcribed Date: 02/08/2025 11:00 ET Dequan Pérez DO IMG XR PROCEDURES Final Res ult * (ABNORMAL) CBC auto differential (02/08/2025 10:25 AM EDT) WBC 17.0(H) 4.8 - 10.8 K/mcL LAB HEMETOLOGY METHOD 02/08/2025 11:11 AM [facility] RBC 4.60 3.80 - 4.80 M/mcL LAB HEMETOLOGY METHOD 02/08/2025 11:11 AM [facility] Hemoglobin 13.9 11.5 - 16.0 g/dL LAB HEMETOLOGY METHOD 02/08/2025 11:11 AM [facility] Hematocrit 44.1 35.0 - 47.0 % LAB HEMETOLOGY METHOD 02/08/2025 11:11 AM [facility] MCV 96.9 79.0 - 98.0 FL LAB HEMETOLOGY METHOD 02/08/2025 11:11 AM [facility] MCH 30.5 27.0 - 32.0 pcg LAB HEMETOLOGY METHOD 02/08/2025 11:11 AM [facility] MCHC 31.5(L) 32.0 - 37.0 g/dL LAB HEMETOLOGY METHOD 02/08/2025 11:11 AM [facility] RDW 14.5 11.0 - 15.0 % LAB HEMETOLOGY METHOD 02/08/2025 11:11 AM [facility] Platelets 253 130 - 400 K/mcL LAB HEMETOLOGY METHOD 02/08/2025 11:11 AM [facility] MPV 11.8(H) 7.0 - 11.0 FL LAB HEMETOLOGY METHOD 02/08/2025 11:11 AM [facility] NRBC 0.0 <1.0 % LAB HEMETOLOGY METHOD 02/08/2025 11:11 AM [facility] NRBC Absolute 0.00 <0.10 K/mcL LAB HEMETOLOGY METHOD 02/08/2025 11:11 AM [facility] Neutrophils Relative 72.8 % LAB HEMETOLOGY METHOD 02/08/2025 11:11 AM [facility] Lymphocytes Relative 17.1 % LAB HEMETOLOGY METHOD 02/08/2025 11:11 AM [facility] Monocytes Relative 8.8 % LAB HEMETOLOGY METHOD 02/08/2025 11:11 AM [facility] Eosinophils Relative 0.6 % LAB HEMETOLOGY METHOD 02/08/2025 11:11 AM [facility] Basophils Relative 0.2 % LAB HEMETOLOGY METHOD 02/08/2025 11:11 AM [facility] Immature Granulocytes Relative 0.5 % LAB HEMETOLOGY METHOD 02/08/2025 11:11 AM [facility] Neutrophils Absolute 12.40(H) 1.50 - 7.00 K/mcL LAB HEMETOLOGY METHOD 02/08/2025 11:11 AM [facility] Lymphocytes Absolute 2.91 1.00 - 5.00 K/mcL LAB HEMETOLOGY METHOD 02/08/2025 11:11 AM [facility] Monocytes Absolute 1.50(H) 0.20 - 1.00 K/mcL LAB HEMETOLOGY METHOD 02/08/2025 11:11 AM [facility] Eosinophils Absolute 0.10 0.00 - 0.50 K/[facility] LAB HEMETOLOGY METHOD 02/08/2025 11:11 AM EDT [facility] Basophils Absolute 0.04 0.00 - 0.20 K/[facility] LAB HEMETOLOGY METHOD 02/08/2025 11:11 AM EDT [facility] Immature Granulocytes Absolute 0.09(H) 0.00 - 0.03 K/[facility] LAB HEMETOLOGY METHOD 02/08/2025 11:11 AM EDT [facility] Blood Venous blood specimen / Unknown Venipuncture / Unknown 02/08/2025 10:25 AM EDT 02/08/2025 10:59 AM EDT Dequan Pérez DO LAB BLOOD ORDERABLES Final Result Performing Organization Address [facility]/ZIP Co de Phone Number [facility] [address] [place] [address], * B-type natriuretic peptide (02/08/2025 10:25 AM EDT) BNP 27 <=100 pcg/mL LAB CHEMISTRY METHOD 02/08/2025 11:48 AM EDT [facility] Blood Venous blood specimen / Unknown Venipuncture / Unknown 02/08/2025 10:25 AM EDT 02/08/2025 10:59 AM EDT Dequan Pérez DO LAB BLOOD ORDERABLES Final Result [facility] [address] [place] [address], [place] [phone] * Magnesium (02/08/2025 10:25 AM EDT) Magnesium 2.4 1.9 - 2.6 mg/dL LAB CHEMISTRY METHOD 02/08/2025 11:37 AM EDT [facility] Comment:Hemolysis present Blood Venous blood specimen / Unknown Venipuncture / Unknown 02/08/2025 10:25 AM EDT 02/08/2025 10:59 AM EDT Dequan Pérez DO LAB BLOOD ORDERABLES Final Result Performing Organization Address City/[facility]/ZIP Co de Phone Number [facility] [address] [place] [address], [place] [phone] * Lipase (02/08/2025 10:25 AM EDT) Lipase 62 13 - 75 unit/L LAB CHEMISTRY METHOD 02/08/2025 11:37 AM EDT [facility] Blood Venous blood specimen / Unknown Venipuncture / Unknown 02/08/2025 10:25 AM EDT 02/08/2025 10:59 AM EDT Dequan Pérez DO LAB BLOOD ORDERABLES Final Result Performing Organization Address City/[facility]/ZIP Co de Phone Number [facility] [address] [place] [address], [place] [phone] * Comprehensive metabolic panel (02/08/2025 10:25 AM EDT) Sodium 137 133 - 145 mmol/L LAB CHEMISTRY METHOD 02/08/2025 11:37 AM EDT [facility] Potassium 4.5 3.5 - 5.5 mmol/L LAB CHEMISTRY METHOD 02/08/2025 11:37 AM EDT [facility] Comment:Hemolysis present Chloride 105 96 - 110 mmol/L LAB CHEMISTRY METHOD 02/08/2025 11:37 AM EDT [facility] CO2 27 21 - 32 mmol/L LAB CHEMISTRY METHOD 02/08/2025 11:37 AM EDT [facility] Anion Gap 5 3 - 11 LAB CHEMISTRY METHOD 02/08/2025 11:37 AM [facility] Glucose 89 70 - 100 mg/dL LAB CHEMISTRY METHOD 02/08/2025 11:37 AM [facility] BUN 24 5 - 25 mg/dL LAB CHEMISTRY METHOD 02/08/2025 11:37 AM [facility] Creatinine 0.78 0.50 - 1.10 mg/dL LAB CHEMISTRY METHOD 02/08/2025 11:37 AM [facility] eGFR 76 >=60 mL/min/1. 73m2 LAB CHEMISTRY METHOD 02/08/2025 11:37 AM [facility] Comment:Calculation based on the Chronic Kidney Disease Epidemiology Collaboration (CKD-EPI) equation refit without adjustment for race. BUN/Creatinine Ratio 30.8 LAB CHEMISTRY METHOD 02/08/2025 11:37 AM [facility] Calcium 9.8 8.5 - 10.5 mg/dL LAB CHEMISTRY METHOD 02/08/2025 11:37 AM [facility] AST (SGOT) 20 10 - 42 unit/L LAB CHEMISTRY METHOD 02/08/2025 11:37 AM [facility] Comment:Hemolysis present ALT (SGPT) 24 10 - 60 unit/L LAB CHEMISTRY METHOD 02/08/2025 11:37 AM [facility] Alkaline Phosphatase 68 42 - 121 unit/L LAB CHEMISTRY METHOD 02/08/2025 11:37 AM [facility] Total Protein 7.0 6.0 - 8.0 g/dL LAB CHEMISTRY METHOD 02/08/2025 11:37 AM [facility] Albumin 3.9 3.2 - 5.0 g/dL LAB CHEMISTRY METHOD 02/08/2025 11:37 AM [facility] Total Bilirubin 0.6 0.0 - 1.4 mg/dL LAB CHEMISTRY METHOD 02/08/2025 11:37 AM [facility] Blood Venous blood specimen / Unknown Venipuncture / Unknown 02/08/2025 10:25 AM EDT 02/08/2025 10:59 AM EDT us Dequan Pérez DO LAB BLOOD ORDERABLES Final Result [facility] [address] [place] [address], from Last 3 Months Insurance [employer] MEDICARE AUTO GENERIC Care Teams Boiler Fireman Relationship Specialty Start Date End Date Physician, No Pcp PCP - General 02/08/25
== END ==
LOC: HO.CARD 13:50
PROVIDERS: PCP Internal Medicine; Visit Provider Internal Medicine
DX: I31.39 Other pericardial effusion (noninflammatory) (principal)
CPT/HCPCS: 93306; J2003; J2704

== ENCOUNTER → 2025-03-07 13:54 | Outpatient (BNV) | payer MEDICARE, SELFPAY | PROVIDERS: PCP Internal Medicine; Visit Provider Internal Medicine Cardiovascular Disease | DX: I31.39 Other pericardial effusion (noninflammatory) (principal); I51.7 Cardiomegaly; I51.89 Other ill-defined heart diseases | CPT/HCPCS: 93306 ==